=== PATIENT | male | born 1955 | race Caucasian/White ===

== ENCOUNTER 2024-04-25 12:07 | Outpatient (CLI) | payer MEDICARE, MEDICAID | END 2024-04-25 23:59 | disposition home or self-care (01) | LOC: RAD 12:07 | PROVIDERS: ATTEND Registered Nurse | DX: M48.56XA Collapsed vertebra, not elsewhere classified, lumbar region, initial encounter for fracture (principal); M51.369 Other intervertebral disc degeneration, lumbar region without mention of lumbar back pain or lower extremity pain; M50.323 Other cervical disc degeneration at C6-C7 level; M43.12 Spondylolisthesis, cervical region; M41.86 Other forms of scoliosis, lumbar region; M06.9 Rheumatoid arthritis, unspecified; X58.XXXA Exposure to other specified factors, initial encounter; Y93.89 Activity, other specified; Y92.89 Other specified places as the place of occurrence of the external cause; Y99.8 Other external cause status; G89.29 Other chronic pain; M54.50 Low back pain, unspecified; R20.0 Anesthesia of skin | CPT/HCPCS: 72040; 72100; 73030 ==

== ENCOUNTER 2024-07-27 12:05 | Outpatient (CLI) | payer MEDICARE, MEDICAID | END 2024-07-27 23:59 | disposition home or self-care (01) | LOC: MRI02 12:05 | PROVIDERS: ATTEND Physical Medicine & Rehabilitation | DX: M50.13 Cervical disc disorder with radiculopathy, cervicothoracic region (principal); M48.02 Spinal stenosis, cervical region; M75.42 Impingement syndrome of left shoulder; M48.03 Spinal stenosis, cervicothoracic region; M25.512 Pain in left shoulder; M75.41 Impingement syndrome of right shoulder; M25.511 Pain in right shoulder; M47.23 Other spondylosis with radiculopathy, cervicothoracic region | CPT/HCPCS: 72141 ==